=== PATIENT | male | born 2000 | race Caucasian/White ===

== ENCOUNTER 2021-02-15 12:38 | Inpatient (IN) ==
[2021-02-15] MEDS ORDERED: Al Hydrox/Mg Hydrox/Simet LIQ 30 ML UDC PO PRN (13:46)
[2021-02-15 13:52] LABS: Urine Benzodiazepine Screen None Detected (None Detect); Urine Cannabinoids Screen None Detected (None Detect); Urine Opiates Screen None Detected (None Detect)
[2021-02-15 13:56] LABS: Urine Color Yellow
[2021-02-15 13:57] LABS: Urine Appearance Clear; Urine Bilirubin 1+ (Negative); Urine Blood Negative (Negative); Urine Ketones Negative (Negative); Urine Nitrite Negative (Negative); Urine Protein Negative (Negative); Urine Specific Gravity 1.005 (1.010-1.030); Urine Urobilinogen Negative (Negative)
[2021-02-15 13:58] LABS: Urine Glucose Negative (Negative)
[2021-02-15 14:07] LABS: ABS Eosinophils 0.3 10^3/ul (0-0.6); ABS Lymphocytes 1.5 10^3/ul (1.0-4.8); ABS Monocytes 0.5 10^3/ul (0-0.8); ABS Neutrophils 5.6 10^3/ul (1.5-7.7); Eosinophil % 4.3 %; Hematocrit 49 % (42-52); Mean Corpuscular HGB Conc 34 g/dL (31-36); Mean Corpuscular Hemoglobin 31 pg (27-31); Mean Corpuscular Volume 90 fL (80-94); Mean Platelet Volume 8.6 fL (7.4-10.4); Platelet Count 270 10^3/uL (150-450); Red Blood Count 5.49 10^6 /uL (4.18-5.48); Red Cell Distribution Width 12 % (10-15)
[2021-02-15 14:21] LABS: ALT 21 U/L (7-52); AST 22 U/L (13-39); Albumin 5.1 g/dL (3.2-5.2); Albumin/Globulin Ratio 1.8 (1-3); Alkaline Phosphatase 71 U/L (34-104); Anion Gap 8 mmol/L (2-11); BUN/Creatinine Ratio 10.8 (8-20); Blood Urea Nitrogen 11 mg/dL (6-24); CO2 Carbon Dioxide 28 mmol/L (22-32); Calcium 10.1 mg/dL (8.6-10.3); Chloride 100 mmol/L (101-111); EGFR African American 113.8 (>60); EGFR Non-African American 94.1 (>60); Globulin 2.8 g/dL (2-4); Glucose 104 mg/dL (70-100); Sodium 136 mmol/L (135-145); Total Protein 7.9 g/dL (6.4-8.9)
[2021-02-15 15:03] LABS: Alcohol, S < 10 mg/dL (<10); Salicylate < 2.50 mg/dL (<30)
[2021-02-15 15:17] LABS: TSH Ultra Thyroid Stim Horm 2.26 mcIU/mL (0.34-5.60)
[2021-02-15 15:19] LABS: Acetaminophen < 15 mcg/mL
[2021-02-16 08:54] LABS: HDL Cholesterol 40.9 mg/dL
[2021-02-16] MEDS: Vitamin THERAPEUTIC TAB PO SCH (10:59)
[2021-02-17] MEDS: Vitamin THERAPEUTIC TAB PO SCH (09:12)
[2021-02-18] MEDS: Vitamin THERAPEUTIC TAB PO SCH (08:42)
[2021-02-19] MEDS: Vitamin THERAPEUTIC TAB PO SCH (10:51)
[2021-02-20] MEDS: Vitamin THERAPEUTIC TAB PO SCH (08:50)
[2021-02-21] MEDS: Vitamin THERAPEUTIC TAB PO SCH (08:48)
[2021-02-22] MEDS: Vitamin THERAPEUTIC TAB PO SCH (08:45)
[2021-02-22 09:56] VITALS: BP 141/56
== END 2021-02-22 11:35 | disposition home or self-care (01) | DRG 753 ==
LOC: ED 12:38 → BSU 13:46
PROVIDERS: ADMIT Psychiatry & Neurology Psychiatry; ATTEND Psychiatry & Neurology Psychiatry